=== PATIENT | male | born 1995 | race Caucasian/White ===

== ENCOUNTER 2017-02-18 08:32 | Inpatient (IN) ==
[2017-02-18] MEDS ORDERED: HYDROmorphone 2 MG/1 ML VIAL IV STA (08:39)
[2017-02-18] MEDS ORDERED: DIPH/TET/ACEL PERT BOOSTER VACCINE 0.5 ML VIAL IM ONE ×2 (08:39→08:51)
[2017-02-18] MEDS ORDERED: LACTATED RINGERS 1,000 ML IV STA (08:39)
[2017-02-18] MEDS ORDERED: cefTRIAXone 1,000 MG in SODIUM CHLORIDE 0.9% 100 ML IV STA (08:39)
[2017-02-18] MEDS ORDERED: ONDANSETRON 4 MG/2 ML VIAL IV STA (08:39)
[2017-02-18] MEDS ORDERED: ONDANSETRON 4 MG/2 ML VIAL ONE ×3 (08:42→15:54)
[2017-02-18] MEDS ORDERED: BENZOCAINE/BUTAMBEN/TETRACAINE SPRAY 20 GM CAN TOP ONE (08:42)
[2017-02-18] MEDS ORDERED: HYDROmorphone 2 MG/1 ML VIAL ONE ×2 (08:43→15:54)
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
[2017-02-18] MEDS ORDERED: cefTRIAXone 1,000 MG VIAL ONE (08:51)
[2017-02-18 08:53] LABS: Basophils # 0.1 10*3/uL (0.0-0.2); Basophils % 0.2 % (0.0-0.8); Eosinophils % 0.1 % (0.00-10.9); Hematocrit 45.2 VOL% (42.0-52.0); Hemoglobin 15.7 GM/DL (14.0-18.0); Immature Granulocytes % 1.1 %; Lymphocytes # 3.4 10*3/uL (1.4-4.0); Lymphocytes % 9.2 % (21.2-54.2); Mean Corpuscular HGB Conc 34.7 GM/DL (32-36); Mean Corpuscular Hemoglobin 33 PG (27-34); Mean Corpuscular Volume 93.8 FL (87-102); Mean Platelet Volume 10.1 FL (9.6-12.0); Monocytes # 3.2 10*3/uL (0.11-0.8); Monocytes % 8.7 % (1.7-12.7); Neutrophils # 29.5 10*3/uL (1.4-7.4); Neutrophils % 80.7 % (38.7-73.9); Platelet Count 299 T/CUMM (130-400); Red Blood Count 4.82 MC/CUMM (3.8-5.5); Red Cell Distribution Width 12.9 % (9.3-17.3); White Blood Count 36.6 T/CUMM (4-12)
[2017-02-18 09:15] LABS: Lactic Acid 5.6 MMOL/L (0.4-2.0)
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
[2017-02-18 09:26] LABS: Albumin 4.1 G/DL (3.4-5.0); Bilirubin,Total 0.5 MG/DL (0.2-1.0); CKMB % 0.9 %; Calcium 8.8 MG/DL (8.5-10.1); Osmolality,Calculated 287.7 MOS/KG (273-304); Potassium 3.2 MMOL/L (3.5-5.1); Total Protein 6.7 G/DL (6.4-8.3); Troponin I Only 0.04 NG/ML (0.00-0.045)
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
[2017-02-18] MEDS ORDERED: POTASSIUM BICARB EFFERVESCENT 25 MEQ TABLET PO ONE (09:58)
[2017-02-18 10:01] LABS: INR 1.1; PT Patient Result 11.2 SECS; Partial Thromboplastin Time 23.1 SECS (0-40)
[2017-02-18 10:20] LABS: Band Neutrophils 16 % (0-10); Lymphocytes 6 % (20-55); Segmented Neutrophils 70 % (50-85); Total Cells Counted 100
[2017-02-18 10:21] LABS: Giant Platelets Few; Hypochromasia Slight; Microcytosis Slight; Platelet Estimate Adequate
[2017-02-18] MEDS ORDERED: LACTATED RINGERS 1,000 ML IV ONE (10:39)
--- NOTE | 2017-02-18 10:47 | Orthopedic History & Physical ---
History of Present Illness History of present illness: Mr. Goddard is a 21 year old male Home Medications Medication Instructions Recorded Confirmed Type No Known Home Medications [No 02/18/17 02/18/17 History Known Home Medications] Allergies Allergy/AdvReac Type Severity Reaction Status Date / Time No Known Allergies Allergy Verified 02/18/17 08:41 Medical,Surgical,& Family Hx - Social History Smoking Status: Never smoker Frequency of Alcohol Use: Occasionally Type of Drug Use: None Exam - Constitutional Vitals: Period Temp Pulse Resp BP Sys/Coleman Pulse Ox Last 24 Hr 97.2 F-97.2 F 86-88 18-20 73-73/57-57 98 Results - Labs CBC & BMP: 02/18/17 08:42 02/18/17 08:42
[2017-02-18] MEDS ORDERED: ceFAZolin 2,000 MG in PREMIX 1 EACH IV ONE ×2 (10:48→10:49)
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
[2017-02-18] MEDS ORDERED: ceFAZolin 1,000 MG VIAL ONE ×2 (11:06→11:12)
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
--- NOTE | 2017-02-18 12:07 | EKG Report ---
Stationary ECG Study [facility] ER Test Date: 02/18/2017 10:54:59 AM Pat Name: SHAISTA BETANCOURT Department: Room: 319 Gender: M Building Maintenance Custodian: : 1995 Requested by: Salbador Parkinson Order Number: [id number] Reading MD: JHOANA OSUNA Intervals [place] Rate: 102 P: 72 MT: 127 QRS: 109 QRSD: 80 T: -11 QT: 334 QTc: 393 Interpretive Statements SINUS TACHYCARDIA MARKED RIGHT AXIS DEVIATION NONSPECIFIC T-WAVE ABNORMALITY Electronically Signed On 02-20-17 08:12:40 CDT by JHOANA OSUNA [email or web address]
[2017-02-18] MEDS ORDERED: KETOROLAC 30 MG/1 ML VIAL ONE (12:55)
[2017-02-18] MEDS ORDERED: PHENYLEPHRINE 1 MG/10 ML SYRINGE IV ONE (12:55)
[2017-02-18] MEDS ORDERED: PROPOFOL 200 MG/20 ML VIAL IV ONE (12:55)
[2017-02-18] MEDS ORDERED: LIDOCAINE 2% 5 ML VIAL ONE (12:55)
[2017-02-18] MEDS ORDERED: MUPIROCIN 2% OINT 22 GM TUBE TOP ONE ×2 (14:37→14:38)
[2017-02-18 14:38] LABS: Hyaline Casts,Urine 1 /LPF (0-3); Mucus,Urine Occasional /LPF (Occasional); Nitrite,Urine Negative (Negative); RBC,Urine 3 /HPF (0-4); Urine Urobilinogen < 2.0 EU/DL (0.2-1.0); WBC,Urine <1 /HPF (0-6)
[2017-02-18 14:45] LABS: Barbiturates Screen,Urine Negative (Negative); Benzodiazepines Screen,Urine Negative (Negative); Cannabinoid Screen,Urine Negative (Negative); Opiate Screen,Urine Positive (Negative); Phencyclidine Screen,Urine Negative (Negative)
--- NOTE | 2017-02-18 15:31 | Anesthesia Post-Op ---
Anesthesia Post OP - Post Ansesthetic Evaluation Patient seen in post op: Yes Resp: within normal limits CV: within normal limits Mental: within normal limits Temp: within normal limits [id number]: within normal limits Nausea and Vomiting: within normal limits Pain: within normal limits
--- NOTE | 2017-02-18 15:38 | XRay Report ---
Intraoperative fluoroscopy. Indication: Left ankle fracture. 4 views of the left ankle. Fluoroscopy time, 21.2 seconds. 4 digital images were obtained which demonstrate placement of 2 screws within the medial malleolus. These films are presumed to serve the clinical purpose. PROCEDURE INTERPRETED AT [facility] DEPARTMENT OF RADIOLOGY Final Report Signed by: Dr. Bonnie Yates
[2017-02-18] MEDS ORDERED: ONDANSETRON 4 MG/2 ML VIAL IV PRN ×2 (15:39→16:38)
[2017-02-18] MEDS ORDERED: fentaNYL 100 MCG/2 ML VIAL ONE (15:53)
[2017-02-18] MEDS ORDERED: SEVOFLURANE 1 UNIT/15 MINUTE INH ONE (15:53)
[2017-02-18] MEDS ORDERED: ePHEDrine 50 MG/ML AMP ONE (15:54)
[2017-02-18] MEDS ORDERED: LACTATED RINGERS 2,000 ML IV ONE (15:54)
[2017-02-18] MEDS ORDERED: MIDAZOLAM 2 MG/2 ML VIAL ONE (15:54)
[2017-02-18] MEDS ORDERED: ACETAMINOPHEN 1,000 MG/100 ML VIAL IV ONE (15:54)
[2017-02-18] MEDS: HYDROmorphone 2 MG/1 ML VIAL IV PRN ×2 (15:56→16:06)
[2017-02-18] MEDS ORDERED: LACTATED RINGERS 1,000 ML IV SCH (16:00)
[2017-02-18] MEDS ORDERED: ACETAMINOPHEN 325 MG TABLET PO PRN (16:38)
[2017-02-18] MEDS ORDERED: HYDROmorphone 2 MG/1 ML VIAL IV PRN (16:38)
[2017-02-18] MEDS ORDERED: MAGNESIUM HYDROXIDE SUSP 30 ML UDCUP PO PRN (16:38)
[2017-02-18] MEDS ORDERED: NALOXONE 0.4 MG/ML VIAL IV PRN (16:38)
[2017-02-18] MEDS: MORPHINE PCA 30 MG/30 ML SYRINGE IV SCH (17:31)
[2017-02-18] MEDS: LACTATED RINGERS 1,000 ML IV SCH (17:41)
[2017-02-18] MEDS: ACETAMINOPHEN 500 MG TABLET PO SCH (18:58)
[2017-02-18] MEDS: ceFAZolin 2,000 MG in PREMIX 1 EACH IV SCH (21:07)
[2017-02-19] MEDS: ACETAMINOPHEN 500 MG TABLET PO SCH ×3 (00:11→12:53)
[2017-02-19] MEDS: LACTATED RINGERS 1,000 ML IV SCH ×3 (00:11→17:55)
[2017-02-19] MEDS: ceFAZolin 2,000 MG in PREMIX 1 EACH IV SCH ×3 (05:00→23:48)
[2017-02-19 08:00] LABS: Basophils % 0.1 % (0.0-0.8); Eosinophils # 0.3 10*3/uL (0.0-0.87); Eosinophils % 4.3 % (0.00-10.9); Hematocrit 31.3 VOL% (42.0-52.0); Hemoglobin 10.7 GM/DL (14.0-18.0); Immature Granulocytes % 0.1 %; Immature Granulocytes Absolute 0.01 #; Lymphocytes # 1.5 10*3/uL (1.4-4.0); Lymphocytes % 22.4 % (21.2-54.2); Mean Corpuscular HGB Conc 34.2 GM/DL (32-36); Mean Corpuscular Hemoglobin 33 PG (27-34); Mean Corpuscular Volume 95.1 FL (87-102); Mean Platelet Volume 10.5 FL (9.6-12.0); Monocytes # 0.6 10*3/uL (0.11-0.8); Monocytes % 8.3 % (1.7-12.7); Neutrophils # 4.4 10*3/uL (1.4-7.4); Neutrophils % 64.8 % (38.7-73.9); Platelet Count 120 T/CUMM (130-400); Red Blood Count 3.29 MC/CUMM (3.8-5.5); Red Cell Distribution Width 13.2 % (9.3-17.3); White Blood Count 6.8 T/CUMM (4-12)
[2017-02-19 08:23] LABS: Calcium 7.4 MG/DL (8.5-10.1); Osmolality,Calculated 273.7 MOS/KG (273-304); Potassium 3.6 MMOL/L (3.5-5.1)
[2017-02-19] MEDS: PANTOPRAZOLE 40 MG TABLET PO SCH (09:03)
[2017-02-19] MEDS: MORPHINE PCA 30 MG/30 ML SYRINGE IV SCH ×2 (09:03→17:42)
[2017-02-19] MEDS: ENOXAPARIN 40 MG/0.4 ML SYRINGE SUBCUT SCH (09:03)
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
[2017-02-19] MEDS ORDERED: ceFAZolin 2,000 MG in PREMIX 1 EACH IV ONE (15:00)
[2017-02-19] MEDS ORDERED: ONDANSETRON 4 MG/2 ML VIAL ONE ×2 (15:15→16:33)
[2017-02-19] MEDS ORDERED: PROPOFOL 200 MG/20 ML VIAL IV ONE (15:15)
[2017-02-19] MEDS ORDERED: LIDOCAINE 100 MG/5 ML SYRINGE ONE (15:15)
[2017-02-19] MEDS ORDERED: MUPIROCIN 2% OINT 22 GM TUBE TOP ONE (15:46)
--- NOTE | 2017-02-19 16:06 | Anesthesia Post-Op ---
Anesthesia Post OP - Post Ansesthetic Evaluation Patient seen in post op: Yes Resp: within normal limits CV: within normal limits Mental: within normal limits Temp: within normal limits [id number]: within normal limits Nausea and Vomiting: within normal limits Pain: within normal limits
[2017-02-19] MEDS ORDERED: SEVOFLURANE 1 UNIT/15 MINUTE INH ONE (16:08)
[2017-02-19] MEDS ORDERED: fentaNYL 100 MCG/2 ML VIAL ONE (16:08)
[2017-02-19] MEDS ORDERED: MIDAZOLAM 2 MG/2 ML VIAL ONE (16:09)
[2017-02-19] MEDS ORDERED: ONDANSETRON 4 MG/2 ML VIAL IV PRN (16:14)
[2017-02-19] MEDS ORDERED: HYDROmorphone 2 MG/1 ML VIAL IV PRN (16:14)
[2017-02-19] MEDS ORDERED: LACTATED RINGERS 1,000 ML IV SCH (16:30)
[2017-02-19] MEDS ORDERED: HYDROmorphone 2 MG/1 ML VIAL ONE (16:33)
[2017-02-20] MEDS: LACTATED RINGERS 1,000 ML IV SCH (00:02)
[2017-02-20] MEDS: MORPHINE PCA 30 MG/30 ML SYRINGE IV SCH (05:38)
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
[2017-02-20] MEDS: PANTOPRAZOLE 40 MG TABLET PO SCH (08:33)
[2017-02-20] MEDS: ENOXAPARIN 40 MG/0.4 ML SYRINGE SUBCUT SCH (08:34)
[2017-02-20] MEDS: ceFAZolin 2,000 MG in PREMIX 1 EACH IV SCH (08:36)
[2017-02-20] MEDS: NEOMYCIN/POLYMYXIN/BACITRACIN OINT 28.4 GM TUBE TOP SCH (09:40)
[2017-02-20] MEDS ORDERED: NEOMYCIN/POLYMYXIN/BACITRACIN OINT 0.9 GM PACK TOP SCH (10:00)
[2017-02-21] MEDS: PANTOPRAZOLE 40 MG TABLET PO SCH (09:19)
[2017-02-21] MEDS: ENOXAPARIN 40 MG/0.4 ML SYRINGE SUBCUT SCH (09:19)
[2017-02-21] MEDS: SILVER SULFADIAZINE 1% CREAM 400 GM JAR TOP SCH (09:20)
[2017-02-21] MEDS: NEOMYCIN/POLYMYXIN/BACITRACIN OINT 28.4 GM TUBE TOP SCH (09:21)
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
[2017-02-22 05:17] LABS: Basophils % 0.2 % (0.0-0.8); Eosinophils # 0.5 10*3/uL (0.0-0.87); Eosinophils % 5.7 % (0.00-10.9); Hematocrit 30.8 VOL% (42.0-52.0); Hemoglobin 10.4 GM/DL (14.0-18.0); Immature Granulocytes % 0.5 %; Immature Granulocytes Absolute 0.04 #; Lymphocytes # 1.4 10*3/uL (1.4-4.0); Lymphocytes % 16.6 % (21.2-54.2); Mean Corpuscular HGB Conc 33.8 GM/DL (32-36); Mean Corpuscular Hemoglobin 32 PG (27-34); Mean Corpuscular Volume 93.3 FL (87-102); Mean Platelet Volume 10.4 FL (9.6-12.0); Monocytes # 0.8 10*3/uL (0.11-0.8); Monocytes % 9.4 % (1.7-12.7); Neutrophils # 5.6 10*3/uL (1.4-7.4); Neutrophils % 67.6 % (38.7-73.9); Platelet Count 171 T/CUMM (130-400); Red Cell Distribution Width 12.8 % (9.3-17.3); White Blood Count 8.3 T/CUMM (4-12)
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
[2017-02-22 07:54] LABS: Apearance,Urine Clear (Clear); Bilirubin,Urine Negative (Negative); Glucose,Urine (UA) Negative (Negative); Ketones,Urine Negative (Negative); Protein,Urine 100 MG/DL; Urine Color Yellow (Yellow)
[2017-02-22 07:55] LABS: Blood, Urine Moderate mg/dL (Negative)
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
[2017-02-22] MEDS: ENOXAPARIN 40 MG/0.4 ML SYRINGE SUBCUT SCH (09:06)
[2017-02-22] MEDS: PANTOPRAZOLE 40 MG TABLET PO SCH (09:06)
[2017-02-22] MEDS: NEOMYCIN/POLYMYXIN/BACITRACIN OINT 28.4 GM TUBE TOP SCH (09:07)
[2017-02-22] MEDS: SILVER SULFADIAZINE 1% CREAM 400 GM JAR TOP SCH (09:07)
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
[2017-02-22 16:46] VITALS: BP 127/76
== END 2017-02-22 18:00 | disposition home or self-care (01) | DRG 488 ==
LOC: EDBD → EDUNIT# → N.ED 08:32 → N.3E 10:46
PROVIDERS: ADMIT Surgery; ATTEND Surgery